=== PATIENT | male | born 1960 | race Caucasian/White ===

== ENCOUNTER 2020-02-08 04:09 | Emergency (ER) | payer BC ==
[~2020-02-08] VITALS: Ht 170.2 cm; Wt 70.7 kg
[2020-02-08] MEDS ORDERED: SIMV10TA21 PO (04:24)
[2020-02-08] MEDS ORDERED: LOSA25TA14 PO (04:24)
[2020-02-08] MEDS ORDERED: ONDANSETRON 4MG/2ML VIAL IV ONE (05:00)
[2020-02-08 05:35] LABS: BASO # 0.1 10^3/uL (0.0-0.2); BASO % 0.5 % (0.0-1.0); EOS % 0.3 % (0.0-3.0); HEMATOCRIT 36.3 % (42.0-52.0); HEMOGLOBIN 12.3 g/dl (13.5-17.5); LYMPH # 1.2 10^3/uL (1.5-5.0); LYMPH % 8.9 % (24.0-44.0); MEAN CORPUSCULAR HEMOGLOBIN 29.9 pg (27.0-33.0); MEAN CORPUSCULAR HGB CONC 33.9 g/dl (32.0-36.5); MEAN CORPUSCULAR VOLUME 88.3 fl (80.0-96.0); MONO # 0.5 10^3/uL (0.0-0.8); MONO % 4.2 % (0.0-5.0); NEUTROPHILS # 11.1 10^3/uL (1.5-8.5); NEUTROPHILS % 85.8 % (36.0-66.0); PLATELET COUNT, AUTOMATED 245 10^3/uL (150-450); RED BLOOD COUNT 4.11 10^6/uL (4.30-6.10); WHITE BLOOD COUNT 12.9 10^3/uL (4.0-10.0)
[2020-02-08 06:00] LABS: ALBUMIN 3.9 GM/DL (3.2-5.2); BILIRUBIN,DIRECT 0.2 MG/DL (0.0-0.2); BILIRUBIN,TOTAL 0.5 MG/DL (0.2-1.0); TOTAL PROTEIN 6.9 GM/DL (6.4-8.2)
[2020-02-08] MEDS ORDERED: KETOROLAC 30 MG/ML 1ML VIAL IV ONE ×2 (07:00→09:15)
--- NOTE | 2020-02-08 07:07 | REPVR ---
PROCEDURE INFORMATION: Exam: CT Abdomen And Pelvis Without Contrast Exam date and time: 02/08/2020 6:42 AM Age: 59 years old Clinical indication: Abdominal pain; Flank; Right; Additional info: Right renal colic TECHNIQUE: Imaging protocol: Computed tomography of the abdomen and pelvis without contrast. Radiation optimization: All CT scans at this facility use at least one of these dose optimization techniques: automated exposure control; mA and/or kV adjustment per patient size (includes targeted exams where dose is matched to clinical indication); or iterative reconstruction. COMPARISON: No relevant prior studies available. FINDINGS: Lungs: Minimal bibasilar fibro-atelectatic change. Liver: Normal. No mass. Gallbladder and bile ducts: There is a minimal 2 mm gallstone in the gallbladder. Pancreas: Normal. No ductal dilation. Spleen: Normal. No splenomegaly. Adrenals: Normal. No mass. Kidneys and ureters: Small nonobstructing bilateral renal calculi, right greater than left. Right perinephric stranding and induration with moderate right hydronephrosis and hydroureter with periureteral edema which extends to a right UVJ calculus measuring 2 x 3 x 3 mm. Stomach and bowel: Minimal colonic wall thickening. Mild sigmoid diverticulosis without diverticulitis. Appendix: A normal appendix is seen. Intraperitoneal space: Unremarkable. No free air. No significant fluid collection. Vasculature: There is minimal atherosclerotic calcification of the abdominal aorta. Lymph nodes: Unremarkable. No enlarged lymph nodes. Bladder: Unremarkable as visualized. Reproductive: There is mild prostatic enlargement. Bones/joints: Unremarkable. No acute fracture. Soft tissues: Unremarkable. IMPRESSION: 1. Right UVJ calculus measuring 2 x 3 x 3 mm with secondary obstructive uropathy of the right upper tract. 2. Small bilateral nonobstructing renal calculi, right greater than left. 3. Minimal 2 mm gallstone in the gallbladder. 4. Minimal nonspecific pancolitis. 5. Mild sigmoid diverticulosis without diverticulitis. Electronically signed by: Abhilash Day On 02/08/2020 07:06:55 AM
[2020-02-08] MEDS ORDERED: KETO10TAB PO (09:01)
[2020-02-08] MEDS ORDERED: KEFL500C17 PO (09:01)
[2020-02-08] MEDS ORDERED: NORC1TAB7 PO (09:01)
[2020-02-08] MEDS ORDERED: FLOM0.4C39 PO (09:01)
[2020-02-08] MEDS ORDERED: ONDA4TAB6 PO (09:07)
[2020-02-08 09:21] VITALS: BP 123/66
== END 2020-02-08 09:23 | disposition home or self-care (01) ==
LOC: M ED 04:09
DX: N20.1 Calculus of ureter (principal); I10 Essential (primary) hypertension; E78.5 Hyperlipidemia, unspecified; Z79.899 Other long term (current) drug therapy; Z88.1 Allergy status to other antibiotic agents
CPT/HCPCS: 74176; 80047; 80076; 81001; 83690; 85025; 96374; 96375; 96376; 99284; J1885; J2405